=== PATIENT | male | born 1990 | race Caucasian/White ===

== ENCOUNTER 2020-11-03 11:10 | Emergency (ER) | payer OTHER ==
[2020-11-03 12:55] LABS: Absolute Lymphocytes (CBC) 2.5 K/uL (0.7-4.9); Basophils % 0.9 % (0-1.3); Hematocrit 46.1 % (39.6-49.0); Lymphocytes % 27.6 % (15.3-44.8); MPV 7.4 fL (7.6-11.3); RBC Red Blood Cell Count 5.03 M/uL (4.33-5.43)
[2020-11-03 13:00] LABS: Protime INR 0.97
[2020-11-03 13:10] LABS: ALT/SGPT 100 U/L (12-78); AST/SGOT 39 U/L (15-37); Albumin 4.3 g/dL (3.4-5.0); Alkaline Phosphatase 54 U/L (45-117); BUN Blood Urea Nitrogen 15 mg/dL (7-18); Bicarbonate 24 mmol/L (21-32); Bilirubin Direct < 0.1 mg/dL (0-0.2); Bilirubin Total 0.5 mg/dL (0.2-1.0); Glucose Level 96 mg/dL (74-106); Magnesium 2.1 mg/dL (1.8-2.4); Potassium 4.2 mmol/L (3.5-5.1); Sodium Level 141 mmol/L (136-145); Troponin (Emerg Dept Use Only) < 0.02 ng/mL (0.0-0.045)
[2020-11-03 13:15] LABS: NT PRO-BNP < 5 pg/mL (<125)
--- NOTE | 2020-11-03 13:32 | RAD REPORT ---
EXAM DESCRIPTION: RAD - Chest Single View - 11/03/2020 1:07 pm CLINICAL HISTORY: CHEST PAIN Chest pain. COMPARISON: No comparisons FINDINGS: Portable technique limits examination quality. The lungs are grossly clear. The heart is normal in size. No displaced fractures. IMPRESSION: No acute intrathoracic process suspected.
--- NOTE | 2020-11-03 13:49 | EDPHYS ---
Physician Documentation [facility] Name: López Johns Age: 29 yrs Sex: Male : 1990 Arrival Date: 11/03/2020 Time: 11:10 Bed 14 Private MD: ED Physician Emerson De Dios HPI: 11/03 12:33 This 29 yrs old Male presents to ER via Ambulatory with complaints of Chest jmm Pain. 12:33 The patient or guardian reports chest pain that is located primarily in the anterior jm chest wall. The pain radiates to left chest. Associated signs and symptoms: Pertinent negatives: lightheadedness, shortness of breath. The chest pain is described as aching, sharp. Duration: The patient or guardian reports a single episode. Modifying factors: The symptoms are alleviated by nothing. the symptoms are aggravated by nothing. This is a 29 year old male with no known chronic medical conditions that presents ot the ED with complaints of chest pain beginning this morning at 0900 which awoke him from sleep. Denies previous history of CAD. Patient does smoke occasionally. Patient states he performed strenuous activity yesterday. . Historical: - Allergies: 11:25 No Known Allergies; aa5 - PMHx: 11:25 None; aa5 - PSHx: 11:25 None; aa5 - Immunization history:: Adult Immunizations up to date. - Social history:: Smoking status: Patient reports the use of cigarette tobacco products, chewing tobacco, cigars. ROS: 12:33 Constitutional: Negative for fever, chills, and weight loss. jmm 12:33 Respiratory: Negative for shortness of breath, cough, wheezing, and pleuritic chest pain. 12:33 Cardiovascular: Positive for chest pain. Exam: 12:33 Constitutional: This is a well developed, well nourished patient who is awake, alert, jmm and in no acute distress. Head/Face: atraumatic. Eyes: EOMI, no conjunctival erythema appreciated ENT: Moist Mucus Membranes Neck: Trachea midline, Supple 12:33 Abdomen/GI: Non distended, soft Back: Normal ROM Skin: General appearance color normal MS/ Extremity: Moves all extremities, no obvious deformities appreciated, no edema noted to the lower extremities Neuro: Awake and alert, normal gait Psych: Behavior is normal, Mood is normal, Patient is cooperative and pleasant 12:33 Chest/axilla: Inspection: normal, Palpation: tenderness, that is mild, that partially reproduces the patient's complaints, Axilla: 13:27 ECG was reviewed by the Attending Physician. [facility] Vital Signs: 11:25 BP 127 / 85; Pulse 90; Resp 16 S; Temp 99.0(TE); Pulse Ox 98% on R/A; Weight 117.93 kg aa5 (R); Height 5 ft. 11 in. (180.34 cm) (R); Pain 3/10; 12:54 BP 138 / 73; Pulse 95; Resp 16 S; Pulse Ox 99% on R/A; ca1 13:30 BP 132 / 82; Pulse 89; Resp 16 S; Pulse Ox 99% on R/A; ca1 11:25 Body Mass Index 36.26 (117.93 kg, 180.34 cm) aa5 MDM: 12:33 Patient medically screened. [facility] 13:26 Data reviewed: vital signs, nurses notes. [facility] 13:41 Data reviewed: lab test result(s), EKG, radiologic studies, plain films. [facility] 13:47 ED course: HEART SCORE = 1. [facility] 11/03 12:37 Order name: Basic Metabolic Panel; Complete Time: 13:16 [facility] 11/03 12:37 Order name: CBC with Diff; Complete Time: 13:16 [facility] 11/03 12:37 Order name: LFT's; Complete Time: 13:16 [facility] 11/03 12:37 Order name: Magnesium; Complete Time: 13:16 [facility] 11/03 12:37 Order name: NT PRO-BNP; Complete Time: 13:16 [facility] 11/03 12:37 Order name: PT-INR; Complete Time: 13:16 [facility] 11/03 12:37 Order name: Troponin (emerg Dept Use Only); Complete Time: 13:16 [facility] 11/03 12:37 Order name: XRAY Chest (1 view); Complete Time: 13:39 [facility] 11/03 12:37 Order name: EKG; Complete Time: 12:38 [facility] 11/03 12:37 Order name: Cardiac monitoring; Complete Time: 12:52 [facility] 11/03 12:37 Order name: EKG - Nurse/Tech; Complete Time: 12:52 [facility] 11/03 12:37 Order name: IV Saline Lock; Complete Time: 12:52 jm 11/03 12:37 Order name: Labs collected and sent; Complete Time: :52 [facility] 11/03 12:37 Order name: O2 Per Protocol; Complete Time: : jm 11/03 12:37 Order name: O2 Sat Monitoring; Complete Time: :m EC: Rate is 81 beats/min. Rhythm is regular. QRS [place] is Normal. OK interval is normal. QRS jmm interval is normal. QT interval is normal. No Q waves. T waves are Normal. No ST changes noted. Reviewed by me. Administered Medications: No medications were administered Disposition: 11/04 08:16 Co-signature as Attending Physician, Emerson De Dios MD I agree with the assessment and patricia plan of care. Disposition: 11/03/20 13:48 Discharged to Home. Impression: Chest pain, unspecified. - Condition is Stable. - Discharge Instructions: Nonspecific Chest Pain. - Medication Reconciliation Form, Thank You Letter, Antibiotic Education, Prescription Opioid Use form. - Follow up: Private Physician; When: 2 - 3 days; Reason: Recheck today's complaints, Continuance of care, Re-evaluation by your physician. Signatures: Dispatcher [employer] Emerson Buck MD MD cha Mickail, Joel, PA PA jmm Calderon, Audri, RN RN aa5 Anahi Balderas RN RN ca1 Corrections: (The following items were deleted from the chart) 11/03 14:07 13:48 11/03/2020 13:48 Discharged to Home. Impression: Chest pain, unspecified. ca1 Condition is Stable. Forms are Medication Reconciliation Form, Thank You Letter, Antibiotic Education, Prescription Opioid Use. Follow up: Private Physician; When: 2 - 3 days; Reason: Recheck today's complaints, Continuance of care, Re-evaluation by your physician. nhi
--- NOTE | 2020-11-03 13:49 | ER ---
Nurse's Notes [facility] Name: López Johns Age: 29 yrs Sex: Male : 1990 Arrival Date: 11/03/2020 Time: 11:10 Bed 14 Private MD: Diagnosis: Chest pain, unspecified Presentation: 11/03 11:24 Chief complaint: Patient states: woke up with chest pain this morning. Denies known aa5 injury, denies recent illness. Coronavirus screen: Client denies travel out of the [place] in the last 14 days. At this time, the client does not indicate any symptoms associated with coronavirus-19. Ebola Screen: Patient negative for fever greater than or equal to 101.5 degrees Fahrenheit, and additional compatible Ebola Virus Disease symptoms. Initial Sepsis Screen: Does the patient meet any 2 criteria? No. Patient's initial sepsis screen is negative. Does the patient have a suspected source of infection? No. Patient's initial sepsis screen is negative. Risk Assessment: Do you want to hurt yourself or someone else? Patient reports no desire to harm self or others. Onset of symptoms was November 03, 2020. 11:24 Method Of Arrival: Ambulatory aa5 11:24 Acuity: SASCHA 3 aa5 Historical: - Allergies: 11:25 No Known Allergies; aa5 - PMHx: 11:25 None; aa5 - PSHx: 11:25 None; aa5 - Immunization history:: Adult Immunizations up to date. - Social history:: Smoking status: Patient reports the use of cigarette tobacco products, chewing tobacco, cigars. Screenin:30 Abuse screen: Denies threats or abuse. Denies injuries from another. Nutritional ca1 screening: No deficits noted. Tuberculosis screening: No symptoms or risk factors identified. Fall Risk IV access (20 points). Assessment: 12:30 General: Appears in no apparent distress. comfortable, Behavior is calm, cooperative, ca1 appropriate for age. 12:30 Pain: Complains of pain in mid-sternal area Pain radiates to anterior aspect of left ca1 upper chest Pain currently is 0 out of 10 on a pain scale. at worst was 8 out of 10 on a pain scale. Pain began 4 hours ago. Is intermittent. Neuro: Level of Consciousness is awake, alert, obeys commands, Oriented to person, place, time, situation. Cardiovascular: Heart tones S1 S2 present Capillary refill < 3 seconds Patient's skin is warm and dry. Rhythm is sinus rhythm. Respiratory: Airway is patent Respiratory effort is even, unlabored, Respiratory pattern is regular, symmetrical, Breath sounds are clear bilaterally. GI: Abdomen is round non-distended, Bowel sounds present X 4 quads. : No signs and/or symptoms were reported regarding the genitourinary system. EENT: No signs and/or symptoms were reported regarding the EENT system. Derm: Skin is intact, is healthy with good turgor, Skin is pink, warm \T\ dry. Musculoskeletal: Circulation, motion, and sensation intact. Capillary refill < 3 seconds. 13:30 Reassessment: Patient appears in no apparent distress at this time. Patient and/or ca1 family updated on plan of care and expected duration. Pain level reassessed. Patient is alert, oriented x 3, equal unlabored respirations, skin warm/dry/pink. Vital Signs: 11:25 BP 127 / 85; Pulse 90; Resp 16 S; Temp 99.0(TE); Pulse Ox 98% on R/A; Weight 117.93 kg aa5 (R); Height 5 ft. 11 in. (180.34 cm) (R); Pain 3/10; 12:54 BP 138 / 73; Pulse 95; Resp 16 S; Pulse Ox 99% on R/A; ca1 13:30 BP 132 / 82; Pulse 89; Resp 16 S; Pulse Ox 99% on R/A; ca1 11:25 Body Mass Index 36.26 (117.93 kg, 180.34 cm) aa5 ED Course: 11:10 Patient arrived in ED. ag5 11:24 Triage completed. aa5 11:24 Arm band placed on. aa5 11:35 EKG completed in triage. Results shown to MD. aa5 12:21 Avni Pantoja PA is PHCP. [facility] 12:21 Emerson De Dios MD is Attending Physician. jmm 12:30 Patient has correct armband on for positive identification. Placed in gown. Bed in low ca1 position. Call light in reach. Side rails up X 1. athletic monitor on. Pulse ox on. NIBP on. Warm blanket given. 12:35 Anahi Balderas RN is Primary Nurse. ca1 12:42 No provider procedures requiring assistance completed. Initial lab(s) drawn, by me, ca1 sent to lab. Inserted saline lock: 20 gauge in right antecubital area, using aseptic technique. Blood collected. Patient maintains SpO2 saturation greater than 95% on room air. 13:07 XRAY Chest (1 view) In Process Unspecified. EDMS 14:06 IV discontinued, intact, bleeding controlled, No redness/swelling at site. Pressure ca1 dressing applied. Administered Medications: No medications were administered Outcome: 13:48 Discharge ordered by . phylicia 14:06 Discharged to home ambulatory, with significant other. ca1 14:06 Condition: stable 14:06 Discharge instructions given to patient, Instructed on discharge instructions, follow up and referral plans. Demonstrated understanding of instructions, follow-up care. 14:07 Patient left the ED. ca1 Signatures: Dispatcher [employer] EDMS Avni Pantoja PA PA jmm Calderon, Audri RN RN aa5 Anahi Balderas RN RN ca1 Mundo Khoury ag5
[2020-11-03 14:11] VITALS: TEMP 99
[2020-11-03 14:12] VITALS: O2SAT 99
[2020-11-03 14:14] VITALS: BP 132/82
== END 2020-11-03 14:07 | disposition home or self-care (01) ==
LOC: ER 11:10
DX: R07.9 Chest pain, unspecified (principal); F17.210 Nicotine dependence, cigarettes, uncomplicated; Z72.0 Tobacco use
CPT/HCPCS: 36415; 71045; 80048; 80076; 83735; 83880; 84484; 85025; 85610; 93005; 99285